=== PATIENT | male | born 1995 | race African-American/Black ===

== ENCOUNTER 2022-02-19 08:59 | Emergency (ER) | payer BC ==
[~2022-02-19] VITALS: Ht 190.5 cm; Wt 111.3 kg
[2022-02-19 09:55] VITALS: BP 136/88
--- NOTE | 2022-02-19 10:25 | PHYS DOC ---
Past History Past Surgical History: No Surgical History Alcohol Use: None General Adult EDM: Chief Complaint: ABDOMINAL PAIN HPI: HPI: Patient is a 26-year-old male who presents to the emergency department with left lower quadrant pain, diarrhea and blood in his stools that started 3 months ago. He reports that the pain is intermittent. No treatment prior to arrival. No r adiation of pain. No alleviating or aggravating factors. Patient has no medical history or surgical history. Patient reports that it is bright red when he wipes after a BM and is not filling the toilet with blood. Patient denies nausea, vomiting, fevers, urinary symptoms, blood thinner use. Review of Systems: Review of Systems: Constitutional: See HPI GI: See HPI : See HPI Allergies: Allergies: Allergies Coded Allergies Type Severity Reaction Last Updated Verified No Known Drug Allergies 02/19/22 No Physical Exam: PE: Constitutional: Well developed, well nourished, no acute distress, non-toxic appearance. [] HENT: Normocephalic, atraumatic, bilateral external ears normal, oropharynx moist, no oral exudates, nose normal. [] Eyes: PERRL, EOMI, conjunctiva normal, no discharge. [] Neck: Normal range of motion, no stridor Cardiovascular:Heart rate regular rhythm, no murmur [] Lungs & Thorax: Bilateral breath sounds clear to auscultation [] Abdomen: Bowel sounds normal, soft, no abdominal guarding or rigidity, left lower quadrant tenderness with palpation,, no masses, no pulsatile masses. [] Skin: Warm, dry, no erythema, no rash. [] Back: No tenderness, no CVA tenderness. [] Extremities: No tenderness, no cyanosis, no clubbing, ROM intact, no edema. [] Neurologic: Alert and oriented X 3, normal motor function, normal sensory function, no focal deficits noted. [] Psychologic: Affect normal, judgement normal, mood normal. [] Rectal exam: No external hemorrhoids, no fissures or wounds, no internal hemorrhoids, no gross rectal bleeding noted with digital exam, no pain with rec balbina exam Current Patient Data: Labs: Laboratory Tests Test 02/19/22 10:20 White Blood Count 9.2 x10^3/uL Red Blood Count 5.19 x10^6/uL Hemoglobin 15.9 g/dL Hematocrit 46.3 % Mean Corpuscular Volume 89 fL Mean Corpuscular Hemoglobin 31 pg Mean Corpuscular Hemoglobin Concent 34 g/dL Red Cell Distribution Width 13.3 % Platelet Count 265 x10^3/uL Neutrophils (%) (Auto) 58 % Lymphocytes (%) (Auto) 33 % Monocytes (%) (Auto) 7 % Eosinophils (%) (Auto) 2 % Basophils (%) (Auto) 0 % Neutrophils # (Auto) 5.4 x10^3uL Lymphocytes # (Auto) 3.0 x10^3/uL Monocytes # (Auto) 0.6 x10^3/uL Eosinophils # (Auto) 0.1 x10^3/uL Basophils # (Auto) 0.0 x10^3/uL Stool Occult Blood Negative Sodium Level 140 mmol/L Potassium Level 4.0 mmol/L Chloride Level 105 mmol/L Carbon Dioxide Level 23 mmol/L Anion Gap 12 Blood Urea Nitrogen 7 mg/dL Creatinine 1.1 mg/dL Estimated GFR (Cockcroft-Gault) 97.9 BUN/Creatinine Ratio 6 Glucose Level 98 mg/dL Calcium Level 9.3 mg/dL Total Bilirubin 0.5 mg/dL Aspartate Amino Transf (AST/SGOT) 31 U/L Alanine Aminotransferase (ALT/SGPT) 83 U/L Alkaline Phosphatase 97 U/L Total Protein 7.8 g/dL Albumin 4.1 g/dL Albumin/Globulin Ratio 1.1 Lipase 58 U/L Current Medications Medications (Trade) Dose Ordered Sig/Rachelle Route PRN Reason Start Time Stop Time Status Last Admin Dose Admin Sodium Chloride 1,000 ml @ 1,000 mls/hr Q1H IV 02/19/22 10:30 02/19/22 11:29 DC 02/19/22 11:04 Dicyclomine HCl (Bentyl) 10 mg 1X ONCE IM 02/19/22 10:30 02/19/22 10:31 DC Iohexol (Omnipaque 300 Mg/ml) 75 ml 1X ONCE IV 02/19/22 10:30 02/19/22 10:31 DC 02/19/22 10:44 Info (Do NOT chart on this entry -- for MONITORING) 1 each PRN DAILY PRN MC SEE COMMENTS 02/19/22 10:45 02/21/22 10:44 Vital Signs: Vital Signs Date Time Temp Pulse Resp B/P (MAP) Pulse Ox O2 Delivery O2 Flow Rate FiO2 02/19/22 09:55 99.2 72 16 136/88 (104) 98 Room Air EKG: EKG: [] Radiology/Procedures: Radiology/Procedures: []PROCEDURE: CT ABD PELV W/ IV CONTRST ONLY PQRS Compliance Statement: One or more of the following individualized dose reduction techniques were utilized for this examination: 1. Automated exposure control 2. Adjustment of the mA and/or kV according to patient size 3. Use of iterative reconstruction technique CT abdomen/pelvis with contrast 02/19/2022 10:30 AM INDICATION: Right and left upper abdominal pain. Rectal bleeding for 4 weeks. COMPARISON: None available TECHNIQUE: Multiple axial CT images of the abdomen and pelvis were obtained after the intravenous administration of 75 mL Omnipaque 300. Coronal and sagittal reformats are provided. FINDINGS: Visualized portions of the lung bases are clear. Heart size is within normal limits. No suspicious hepatic masses are identified. Liver is homogeneous in enhancement. Spleen, bilateral adrenal glands, and pancreas are normal in appearance. Gallbladder is present without adjacent inflammatory changes. The abdominal aorta is normal in course and caliber. There are no pathologically enlarged lymph nodes in the abdomen and pelvis. There is no abdominal free fluid. There is no free intraperitoneal air. The kidneys enhance symmetrically. There is no suspicious renal mass. There is no hydronephrosis. There are no suspected calculi within the kidneys, ureters or urinary bladder. Small and large bowel are normal in caliber. There is no evidence for bowel obstruction. There are no pericolonic inflammatory changes. A normal, nondilated appendix is visualized without adjacent inflammatory changes. There is an umbilical hernia containing fat measuring 1.8 cm. Urinary bladder is within normal limits given degree of distention. Prostate and seminal vesicles are normal in appearance. No significant osseous normality is identified. IMPRESSION: No acute abnormalities identified within the abdomen and pelvis as detailed above. Electronically signed by: Olayinka Martini MD (02/19/2022 11:17 AM) [id number] DICTATED AND SIGNED BY: OLAYINKA MARTINI MD DATE: 02/19/22 1113 CC: BHARATI ROSA; EVERETT JASSO GRID INSPECTOR ~ Heart Score: C/O Chest Pain: N/A Risk Factors: Risk Factors: DM, Current or recent (<one month) smoker, HTN, HLP, family history of CAD, obesity. Risk Scores: Score 0 - 3: 2.5% MACE over next 6 weeks - Discharge Home Score 4 - 6: 20.3% MACE over next 6 weeks - Admit for Clinical Observation Score 7 - 10: 72.7% MACE over next 6 weeks - Early Invasive Strategies Course & Med Decision Making: Course & Med Decision Making Pertinent Labs and Imaging studies reviewed. (See chart for details) Patient presents to the emergency department with a 3-month history of left lower quadrant pain, diarrhea and blood in his stools. Work-up in the ER consisted of blood work including lipase, urinalysis, fecal occult and CT imaging of abdomen pelvis. Patient was treated with IV fluids and pain medication. Work and CT imaging of abdomen pelvis were negative for any acute findings. Fecal occult was negative for blood. Patient educated on diet management and Imodium for diarrhea. Patient's urinalysis is pending at this time. He reports that he cannot wait any longer for his urinalysis to result and if we could call him with his results. Patient advised to follow-up with his primary care provider regarding his findings. I discussed with patient all findings and diagnostic testing as well as the need to follow-up with PCP for further evaluation and treatment or return to the ER if any new or worsening symptoms. Strict return precautions were also discussed at length. Patient voiced understanding and agreement with the plan. Patient is hemodynamically stable at the time of disposition. Cheryle Disclaimer: Cheryle Disclaimer: This electronic medical record was generated, in whole or in part, using a voice recognition dictation system. Departure Departure: Impression: Primary Impression: Abdominal pain Qualified Codes: R10.32 - Left lower quadrant pain Disposition: HOME / SELF CARE / HOMELESS Condition: GOOD Referrals: BHARATI ROSA (PCP) Patient Instructions: Abdominal Pain (Nonspecific) Additional Instructions: You are seen in the emergency department for abdominal pain and diarrhea. Your blood work was unremarkable. Your CT abdomen and pelvis did not show any acute findings. Urinalysis is pending and you will be notified if you have a urinary tract infection that requires treatment. Take Imodium [id number] for diarrhea. I would stick to a bland diet, we recommend the brat diet which is bananas, rice, applesauce and toast for the next 24 hours. Avoid eating any spicy, greasy or fatty foods. Increase your fluids. Follow-up with your primary care provider tomorrow regarding your ER visit. Return to the emergency department if you develop intractable nausea or vomiting, increased blood in stools, high fevers refractory to treatment, worsening of your abdominal pain or any new or worsening concerns. EVERETT JASSO GRID INSPECTOR Feb 19, 2022 10:25
[2022-02-19] MEDS ORDERED: IOHEXOL 300 MG/ML 75 ML VIAL. IV ONE (10:30)
[2022-02-19] MEDS ORDERED: IV NORMAL SALINE 1,000ML 1,000 ML IV SCH (10:30)
[2022-02-19] MEDS ORDERED: DICYCLOMINE 20 MG/2 ML VIAL. IM ONE (10:30)
[2022-02-19] MEDS ORDERED: CONTRAST GIVEN. MC PRN (10:45)
[2022-02-19 11:04] LABS: CALCIUM 9.3 mg/dL (8.5-10.1); CREATININE 1.1 mg/dL (0.7-1.3); GFR 97.9
[2022-02-19 11:10] LABS: ALBUMIN 4.1 g/dL (3.4-5.0); ALBUMIN/GLOBULIN RATIO 1.1 (1.0-1.7); TOTAL BILIRUBIN 0.5 mg/dL (0.2-1.0); TOTAL PROTEIN 7.8 g/dL (6.4-8.2)
[2022-02-19 11:12] LABS: BASO % 0 % (0-3); EOS # 0.1 x10^3/uL (0.0-0.7); EOS % 2 % (0-3); HEMATOCRIT 46.3 % (39.0-53.0); HEMOGLOBIN 15.9 g/dL (13.0-17.5); LYMPH % 33 % (24-48); MEAN CORPUSCULAR HEMOGLOBIN 31 pg (25-35); MEAN CORPUSCULAR HGB CONC 34 g/dL (31-37); MEAN CORPUSCULAR VOLUME 89 fL (79-100); MONO # 0.6 x10^3/uL (0.0-1.1); MONO % 7 % (0-9); NEUT # 5.4 x10^3uL (1.8-7.7); NEUT % 58 % (31-73); PLATELET COUNT 265 x10^3/uL (140-400); RED BLOOD COUNT 5.19 x10^6/uL (4.30-5.70); RED CELL DISTRIBUTION WIDTH 13.3 % (11.5-14.5); WHITE BLOOD COUNT 9.2 x10^3/uL (4.0-11.0)
--- NOTE | 2022-02-19 11:20 | RAD ---
PQRS Compliance Statement: One or more of the following individualized dose reduction techniques were utilized for this examinat ion: 1. Automated exposure control 2. Adjustment of the mA and/or kV according to patient size 3. Use of iterative reconstruction technique CT abdomen/pelvis with contrast 02/19/2022 10:30 AM INDICATION: Right and left upper abdominal pain. Rectal bleeding for 4 weeks. COMPARISON: None available TECHNIQUE: Multiple axial CT images of the abdomen and pelvis were obtained after the intravenous adm inistration of 75 mL Omnipaque 300. Coronal and sagittal reformats are provided. FINDINGS: Visualized portions of the lung bases are clear. Heart size is within normal limits. No suspicious hepatic masses are identified. Liver is homogeneous in enhancement. Spleen, bilateral a drenal glands, and pancreas are normal in appearance. Gallbladder is present without adjacent inflamm atory changes. The abdominal aorta is normal in course and caliber. There are no pathologically enlarged lymph nodes in the abdomen and pelvis. There is no abdominal free fluid. There is no free intraperitoneal air. The kidneys enhance symmetrically. There is no suspicious renal mass. There is no hydronephrosis. The re are no suspected calculi within the kidneys, ureters or urinary bladder. Small and large bowel are normal in caliber. There is no evidence for bowel obstruction. There are no pericolonic inflammatory changes. A normal, nondilated appendix is visualized without adjacent infla mmatory changes. There is an umbilical hernia containing fat measuring 1.8 cm. Urinary bladder is within normal limits given degree of distention. Prostate and seminal vesicles are normal in appearance. No significant osseous normality is identified. IMPRESSION: No acute abnormalities identified within the abdomen and pelvis as detailed above. Electronically signed by: Nikky Martini MD (02/19/2022 11:17 AM) [id number]
[2022-02-19 12:01] LABS: FECAL OB PT NEGATIVE (NEG)
[2022-02-19 12:56] LABS: BACTERIA,URINE 0 /HPF (0-FEW); CLARITY,URINE CLEAR; COLOR,URINE YELLOW; GLUCOSE,URINE NEG (NEG); NITRITE,URINE NEG (NEG); RBC,URINE RARE /HPF (0-2); UROBILINOGEN,URINE 0.2 mg/dL (0.2 mg/dL); WBC,URINE 0 /HPF (0-4)
== END 2022-02-19 12:46 | disposition home or self-care (01) ==
LOC: ER 08:59
DX: R10.32 Left lower quadrant pain (principal); R19.7 Diarrhea, unspecified; K92.1 Melena
CPT/HCPCS: 36415; 74177; 80053; 81001; 82274; 83690; 85025; 96360; 99285; J7030; Q9967